=== PATIENT | female | born 1970 | race Caucasian/White ===

== ENCOUNTER → 2018-10-02 11:36 | Outpatient (CLI) | payer OTHER, SELFPAY ==
--- NOTE | 2018-10-02 | DI.MG.S_ITS ---
BILATERAL DIGITAL SCREENING MAMMOGRAM 3D/2D WITH CAD WITH AUGMENTATION: 10/02/2018 CLINICAL: Routine screening. Comparison is made to exams dated: 09/13/2016 mammogram, 08/25/2015 mammogram, and 12/05/2013 mammogram - [facility]. The tissue of both breasts is extremely dense, which lowers the sensitivity of mammography. Current study was also evaluated with a Computer Aided Detection (CAD) system. Bilateral breast implants are intact. No significant masses, calcifications, or other findings are seen in either breast. There has been no significant interval change. IMPRESSION: There is no mammographic evidence of malignancy. A 1 year screening mammogram is recommended. This exam was interpreted at Station ID: [id number]. NOTE: For mammograms, a report in lay terms will be sent to the patient. Approximately 15% of breast malignancies will not be visualized mammographically. In the management of a palpable breast mass, a negative mammogram must not discourage biopsy of a clinically suspicious lesion. Electronically Signed By: Donaldo colorado/dennis:10/03/2018 07:07:02 letter sent: Normal Exam ACR BI-RADS Category 2: Benign Finding(s) 3342F
== END ==
PROVIDERS: PCP Family Medicine; Visit Provider Family Medicine
DX: Z12.31 Encounter for screening mammogram for malignant neoplasm of breast (principal)
CPT/HCPCS: 77063; 77067

== ENCOUNTER → 2019-08-07 16:13 | Outpatient (CLI) | payer OTHER, SELFPAY ==
--- NOTE | 2019-08-07 16:16 | DI.RAD.S_ITS ---
PROCEDURE: XR FOOT RT MIN 3V INDICATIONS: right foot pain TECHNIQUE: 3 views of the foot were acquired. COMPARISON: [facility], , FOOT 3V LEFT, 06/01/2017, 13:12. FINDINGS: Bones: No fractures or dislocations. No suspicious bony lesions. Soft tissues: No tibiotalar joint effusion. Achilles tendon appears normal. IMPRESSION: No right foot fracture or dislocation. Dictated by: Francisco Costa M.D. on 08/07/2019 at 16:57 Approved by: Francisco Costa M.D. on 08/07/2019 at 16:58
== END ==
PROVIDERS: Visit Provider Physician Assistant
DX: M79.671 Pain in right foot (principal)
CPT/HCPCS: 73630

== ENCOUNTER → 2019-08-13 09:10 | Outpatient (CLI) | payer OTHER, SELFPAY ==
--- NOTE | 2019-08-13 | DI.MRI.S_ITS ---
PROCEDURE: MR ANKLE RT WO CON INDICATIONS: PAIN IN RIGHT ANKLE AND JOINTS OF FOOT TECHNIQUE: Noncontrast sagittal T1 spin echo and T2 fast spin echo with fat saturation, axial proton density fast spin echo and T2 fast spin echo with fat saturation, coronal T1 spin echo and T2 fast spin echo with fat saturation through the ankle/hindfoot. COMPARISON: [facility], CR, XR FOOT RT MIN 3V, 08/07/2019, 16:17. FINDINGS: Image quality: Diagnostic. Bones and joints: There is no acute fracture, dislocation, or suspicious osseous lesion evident involving the osseous structures of the right midfoot and hindfoot. The ankle mortise is well-maintained. No osteochondral defects involving the tibial plafond toward the talar dome are evident. However, there may be a small full thickness defect of the hyaline articular cartilage along the medial aspect of the talar dome without underlying degenerative or reactive marrow changes. No significant joint effusions are appreciated. No significant degenerative changes of the midfoot or hindfoot are appreciated. Medial structures: The deltoid and spring ligaments are intact. However, thickening involving the superomedial band of the spring ligament is evident without significant increased signal area in the plantar components of the spring ligament are intact. There is thickening and increased signal involving the tibialis posterior tendon at the level of the navicular with a small amount of fluid contained within its corresponding tendon sheath. The flexor hallucis longus and flexor digitorum longus tendons are intact. A small amount of fluid is also contained within their corresponding tendon sheaths. The posterior tibial nerve through the region of the tarsal tunnel is slightly prominent in size; however, does not demonstrate significant increased signal. No extrinsic mass effect on the tarsal tunnel is appreciated. Lateral structures: The anterior and posterior distal tibiofibular ligaments are intact. The anterior and posterior talofibular ligaments are intact. The calcaneofibular ligament is also intact. There is thickening and increased signal evident involving the peroneus brevis and peroneus longus tendons it is more prominent involving the peroneus longus tendon along the posterior aspect of the distal margin of the lateral malleolus. No significant tearing is evident. A trace amount of fluid is contained within their corresponding tendon sheaths. Minimal soft tissue edema overlying the lateral margin of the ankle is present. Normal fatty signal is seen within the sinus tarsi. Anterior structures: The tibialis anterior, extensor hallucis longus, and extensor digitorum longus tendons appear intact. Posterior and plantar structures: Achilles tendon is intact. Medial and lateral bands of the plantar fascia are of normal thickness. IMPRESSION: 1. Mild to moderate tibialis posterior tendinopathy with corresponding tenosynovitis. No significant tearing. 2. Mild tenosynovitis involving the other medial flexor tendons without definite tendon abnormality. 3. Probable scarring of the spring ligament. No full-thickness tear. 4. Mild to moderate tendinopathy involving the peroneus brevis and peroneus longus tendons. 5. The lateral ankle ligaments are intact. 6. Mild posterior tibial nerve prominence within the tarsal tunnel is probably within normal limits. However, clinical correlation to exclude tarsal tunnel syndrome is recommended. Dictated by: Peter Joseph M.D. on 08/13/2019 at 9:53 Approved by: Peter Joseph M.D. on 08/13/2019 at 10:01
== END ==
PROVIDERS: Visit Provider Student in an Organized Health Care Education/Training Program
DX: M25.571 Pain in right ankle and joints of right foot (principal); M65.871 Other synovitis and tenosynovitis, right ankle and foot
CPT/HCPCS: 73721

== ENCOUNTER → 2020-01-09 11:09 | Outpatient (CLI) | payer OTHER, SELFPAY ==
[2020-01-09 13:50] LABS: TSH w/ Reflex to FT4 1.38 uIU/mL (0.47-4.68)
== END ==
PROVIDERS: PCP Student in an Organized Health Care Education/Training Program; Referring Provider Student in an Organized Health Care Education/Training Program; Visit Provider Student in an Organized Health Care Education/Training Program
DX: L65.9 Nonscarring hair loss, unspecified (principal)
CPT/HCPCS: 36415; 84443

== ENCOUNTER → 2020-10-08 15:02 | Outpatient (CLI) | payer OTHER, SELFPAY ==
--- NOTE | 2020-10-08 15:05 | DI.CT.S_ITS ---
PROCEDURE: CT SINUS SCREEN WO CON INDICATIONS: Hypertrophy of nasal turbinates TECHNIQUE: Noncontrast 3.0 mm axial images acquired from the frontal sinuses to the mid-sella, with coronal and sagittal reformats. For radiation dose reduction, the following was used: automated exposure control, adjustment of mA and/or kV according to patient size. COMPARISON: None. FINDINGS: Image quality: Excellent. Maxillary Sinuses: No bony remodeling or destruction. There is [id number] mucosal thickening seen involving the inferior the left maxillary sinus. Minimal mucosal thickening is seen within the right maxillary sinus. Ethmoid Air Cells: No bony remodeling or destruction. Sinuses are clear. Sphenoid Sinuses: No bony remodeling or destruction. Sinuses are clear. Frontal Sinuses: No bony remodeling or destruction. Sinuses are clear. Ostiomeatal Complexes: Ostiomeatal complexes are patent, yet they are constitutionally narrowed, with infraorbital air cells. Miscellaneous: Visualized intra-orbital contents are normal. No conor bullosa or paradoxical turbinate curvature. There is moderate leftward nasal septal deviation, with a mild leftward directed bony nasal septal spur. IMPRESSION: Focal maxillary sinus disease, left worse than right. Moderate leftward nasal septal deviation, with a leftward directed bony nasal septal spur. Patent, yet constitutionally narrowed ostiomeatal complexes. Dictated by: Jose Macias M.D. on 10/08/2020 at 15:38 Approved by: Jose Macias M.D. on 10/08/2020 at 15:40
== END ==
PROVIDERS: PCP Student in an Organized Health Care Education/Training Program; Referring Provider Otolaryngology; Visit Provider Otolaryngology
DX: J32.0 Chronic maxillary sinusitis (principal); J34.3 Hypertrophy of nasal turbinates; J34.89 Other specified disorders of nose and nasal sinuses; J34.2 Deviated nasal septum
CPT/HCPCS: 70486

== ENCOUNTER → 2021-05-07 11:06 | Outpatient (CLI) | payer OTHER, SELFPAY ==
[2021-05-07 12:17] LABS: Add Manual Diff / Slide Review NO; Basophils Absolute Auto 0 /uL (0-100); Basophils Percent Auto 0.9 % (0-2); Eosinophils Absolute Auto 200 /uL (0-450); Eosinophils Percent Auto 3.2 % (2-4); Hematocrit 38.4 % (36-46); Lymphocytes Absolute Auto 1700 /uL (1100-4500); Lymphocytes Percent Auto 33.8 % (25-40); Mean Corpuscular Hemoglobin 31.5 PG (26-34); Mean Corpuscular Volume 92.6 fL (80-100); Monocytes Absolute Auto 500 /uL (0-900); Monocytes Percent Auto 10.9 % (3-14); Neutrophils Absolute Auto 2500 /uL (1500-7000); Neutrophils Percent Auto 51.2 % (50-75); Platelet Count 249 X10^3/uL (150-400); Red Blood Cell Count 4.14 X10^6/uL (4.0-5.2); Red Cell Distribution Width 13.1 % (11.6-14.8); White Blood Cell Count 4.9 X10^3/uL (4.5-11.0)
[2021-05-07 12:30] LABS: Alanine Aminotransferase 25 IU/L (<35); Albumin 4.2 g/dL (3.5-5.0); Albumin Globulin Ratio 1.5 (1.0-2.8); Alkaline Phosphatase 65 U/L (38-126); Aspartate Aminotransferase 28 IU/L (14-36); BUN Creatinine Ratio 24.6 (6-22); Bilirubin Total 0.5 mg/dL (0.2-1.3); Blood Urea Nitrogen 15 mg/dL (7-17); Calcium 9.1 mg/dL (8.4-10.2); Carbon Dioxide 28 mmol/L (22-32); Chloride 100 mmol/L (98-107); Cholesterol 266 mg/dL (140-199); Estimated Glomerular Filt Rate > 60.0 mL/min (>60); Globulin 2.8 g/dL (1.7-4.1); Glucose 88 mg/dL (70-100); HDL Cholesterol 71 mg/dL (40-60); HEMOLYSIS < 15 (0-50); LDL Cholesterol Calculated 160 mg/dL (<100); Potassium 4.1 mmol/L (3.4-5.1); Sodium 135 mmol/L (137-145); Triglycerides 176 mg/dL (35-150)
[2021-05-07 12:46] LABS: Vitamin D 25 Hydroxy (D3) 31.8 ng/mL (30.0-100.0)
== END ==
PROVIDERS: PCP Family Medicine; Referring Provider Family Medicine; Visit Provider Family Medicine
DX: I10 Essential (primary) hypertension (principal); R00.2 Palpitations
CPT/HCPCS: 36415; 80053; 80061; 82306; 85025